=== PATIENT | female | born 1990 | race Caucasian/White ===

== ENCOUNTER 2018-02-05 17:28 | Emergency (ER) | END 2018-02-05 19:57 | disposition home or self-care (01) ==

== ENCOUNTER 2018-03-31 01:34 | Emergency (ER) | END 2018-03-31 04:00 | disposition home or self-care (01) ==

== ENCOUNTER 2018-04-09 13:20 | Emergency (ER) | END 2018-04-09 14:08 | disposition home or self-care (01) ==

== ENCOUNTER 2018-05-29 23:13 | Outpatient (CLI) | END 2018-05-30 03:00 | disposition home health service (06) ==

== ENCOUNTER 2018-06-07 03:54 | Outpatient (CLI) | END 2018-06-07 09:45 | disposition home or self-care (01) ==

== ENCOUNTER 2018-07-11 20:49 | Outpatient (CLI) | END 2018-07-11 22:44 | disposition home or self-care (01) ==

== ENCOUNTER 2018-07-27 06:00 | Inpatient (IN) | END 2018-07-30 16:00 | disposition home or self-care (01) | DRG 806 ==

== ENCOUNTER 2018-11-23 18:28 | Emergency (ER) | payer OTHER ==
[~2018-11-23] VITALS: Ht 154.9 cm; Wt 68.2 kg
[~2018-11-23 18:28] MED LIST: PREN1TAB79 PO
[2018-11-23 18:35] VITALS: Ht 154.9 cm; Wt 68.2 kg
[2018-11-23] MEDS ORDERED: CEPH-443 PO (21:19)
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
[2018-11-23 22:17] VITALS: BP 105/68; PULSE 63; RESP 19
== END 2018-11-23 22:17 | disposition home or self-care (01) ==
LOC: FTE 18:28
DX: S61.217A Laceration without foreign body of left little finger without damage to nail, initial encounter (principal); F17.210 Nicotine dependence, cigarettes, uncomplicated; X99.1XXA Assault by knife, initial encounter
CPT/HCPCS: 29130; Z7502